=== PATIENT | female | born 1955 | race Caucasian/White ===

== ENCOUNTER 2024-05-03 10:19 | Day surgery (SDC) | payer MEDICARE, BC ==
[2024-04-20 15:26] LABS: BASOPHILS % (AUTO) 0.4 % (0-1); EOSINOPHILS # (AUTO) 0.1 X10'3 (0-0.9); EOSINOPHILS % (AUTO) 1.4 % (0-6); LYMPHOCYTES % (AUTO) 27.1 % (21-51); MEAN CORPUSCULAR HEMOGLOBIN 29.8 PG (27.0-31.0); MEAN CORPUSCULAR VOLUME 90.3 FL (78-98); MEAN PLATELET VOLUME 7.8 FL (7.4-10.4); MONOCYTES # (AUTO) 0.4 X10'3 (0-0.9); MONOCYTES % (AUTO) 5.3 % (2-12); NEUTROPHILS # (AUTO) 4.8 X10'3 (1.8-7.7); NEUTROPHILS % (AUTO) 65.8 % (42-75); PRE OP HEMATOCRIT 45.2 % (35.0-45.0); PRE OP HEMOGLOBIN 14.9 g/dL (12.0-16.0); PRE OP PLATELET COUNT 293 X10'3 (140-440); PRE OP WHITE BLOOD COUNT 7.4 10'3 (4.8-10.8); RED CELL DISTRIBUTION WIDTH 13.4 % (11.5-14.5)
[2024-04-20 15:37] LABS: ALBUMIN 4.3 G/DL (3.4-5.0); ALBUMIN/GLOBULIN RATIO 1.1 (1.1-1.5); ALKALINE PHOSPHATASE 56 IU/L (46-116); BLOOD UREA NITROGEN 16 MG/DL (7-18); BUN/CREATININE RATIO 21.3 (10.0-20.0); CALCIUM 9.4 MG/DL (8.5-10.1); CHLORIDE 103 MMOL/L (99-107); CREATININE 0.75 MG/DL (0.40-0.90); PRE OP ALT 25 U/L (30-65); PRE OP ANION GAP 8 (8-16); PRE OP AST 13 U/L (10-37); PRE OP BILIRUB, TOTAL 0.8 MG/DL (0.0-1.0); PRE OP GLUCOSE 93 MG/DL (70-104); PRE OP POTASSIUM 4.3 MMOL/L (3.4-5.1); PRE OP SODIUM 139 MMOL/L (135-145); TOTAL CARBON DIOXIDE 28.1 MMOL/L (24-32); TOTAL PROTEIN 8.3 G/DL (6.4-8.2); eGFR 77 ML/MIN
[2024-04-25] MEDS: ceFAZolin 2gm in dextrose, iso 50 ML IV ONE (05:30)
[2024-05-03] VITALS (12 sets, daily range): BP systolic 132–165; BP diastolic 70–92; PULSE 60–87; RESP 13–20; TEMP 98.9; O2SAT 97–100
[~2024-05-03] VITALS: Ht 162.6 cm; Wt 58.2 kg
[2024-05-03] MEDS: ceFAZolin 2gm in dextrose, iso 50 ML IV ONE (05:30)
[~2024-05-03 10:19] MED LIST: BUPIVAcaine 2.5mg/ml inj 50ml vial (contains preservative) ONE; CALCIUM PO; CHOL200080 PO; LEVO100T PO; LIDOcaine 1% (10mg/ml)w/preservative inj. 20ml MDV ONE; famotidine 20mg tablet PO ONE; methylene blue (5mg/ml) 50mg/10ml ampul IV ONE; ringers solution, lacted 1,000 ML IV SCH
[2024-05-03] MEDS: ringers solution, lacted 1,000 ML IV SCH (11:03)
[2024-05-03] MEDS: famotidine 20mg tablet PO ONE (11:03)
[2024-05-03] MEDS ORDERED: labetalol 20mg/4ml (5mg/ml) syringe IV PRN (13:20)
[2024-05-03] MEDS ORDERED: morphine 4 MG/ML inj SYRINge IV PRN (13:20)
[2024-05-03] MEDS ORDERED: HYDROmorphone/PF 0.2 MG/ML SYRINGE IV PRN ×2 (13:20)
[2024-05-03] MEDS ORDERED: morphine 2 MG/ML inj. syringe IV PRN (13:20)
[2024-05-03] MEDS ORDERED: ondansetron/PF 4mg/2ml inj IV PRN (13:20)
[2024-05-03] MEDS ORDERED: hydrALAZINE 20mg/ml inj. IV PRN (13:20)
[2024-05-03] MEDS ORDERED: ringers solution, lacted 1,000 ML IV SCH (13:20)
[2024-05-03] MEDS ORDERED: proCHLORperazine 10 MG/2 ml inj IV PRN (13:20)
[2024-05-03] MEDS ORDERED: sevoflurane 250ml liquid IH ONE (13:21)
[2024-05-03] MEDS ORDERED: midazolam 1 mg/ML 2ml injection ONE (13:25)
[2024-05-03] MEDS ORDERED: fentaNYL/PF 50MCG/1 ML 2ML syringe ONE (13:25)
[2024-05-03] MEDS: LIDOcaine 1% 30ml preserv. free vial SQ ONE (13:54)
[2024-05-03] MEDS: methylene blue (5mg/ml) 50mg/10ml ampul IV ONE (13:57)
[2024-05-03] MEDS ORDERED: dexamethasone sod phosphate 4mg/ml inj. ONE (14:21)
[2024-05-03] MEDS ORDERED: propofol inj 20 ML IV ONE ×2 (14:21)
[2024-05-03] MEDS ORDERED: LIDOcaine 1%/PF 5ML 10 MG/ML VIAL ONE (14:21)
[2024-05-03] MEDS ORDERED: ondansetron/PF 4mg/2ml inj ONE (14:21)
[2024-05-03] MEDS: acetaminophen 1,000mg/100ml IV 100 ML IV PRN (15:46)
== END 2024-05-03 17:20 | disposition home or self-care (01) ==
LOC: PAS 10:19
PROVIDERS: ATTEND Surgery
DX: C50.412 Malignant neoplasm of upper-outer quadrant of left female breast (principal); R59.0 Localized enlarged lymph nodes; E03.9 Hypothyroidism, unspecified; Z79.899 Other long term (current) drug therapy; Z98.890 Other specified postprocedural states; Z98.891 History of uterine scar from previous surgery; Z80.3 Family history of malignant neoplasm of breast
CPT/HCPCS: 19301; 36415; 38525; 38900; 76098; 80053; 82948; 85025; 93005; A4215; A4618; A6258; A6402; A7000; J0131; J0690; J1100; J2003; J2250; J2405; J2704; J3010; J3490; J7030; J7120; Q9968; Z7506; Z7508; Z7512; Z7610; 88307; 88342; A6449

== ENCOUNTER 2024-05-25 05:32 | Day surgery (SDC) | payer MEDICARE, BC ==
[2024-05-18 15:40] LABS: BASOPHILS # (AUTO) 0.1 X10'3 (0-0.2); BASOPHILS % (AUTO) 0.9 % (0-1); EOSINOPHILS # (AUTO) 0.1 X10'3 (0-0.9); EOSINOPHILS % (AUTO) 2.2 % (0-6); LYMPHOCYTES # (AUTO) 1.9 X10'3 (1.1-4.8); LYMPHOCYTES % (AUTO) 30.3 % (21-51); MEAN CORPUSCULAR HEMOGLOBIN 29.8 PG (27.0-31.0); MEAN CORPUSCULAR HGB CONC 33.4 g/dL (33.0-36.5); MEAN CORPUSCULAR VOLUME 89.2 FL (78-98); MEAN PLATELET VOLUME 8.2 FL (7.4-10.4); MONOCYTES # (AUTO) 0.3 X10'3 (0-0.9); MONOCYTES % (AUTO) 5.2 % (2-12); NEUTROPHILS # (AUTO) 3.9 X10'3 (1.8-7.7); NEUTROPHILS % (AUTO) 61.4 % (42-75); PRE OP HEMATOCRIT 43.3 % (35.0-45.0); PRE OP HEMOGLOBIN 14.5 g/dL (12.0-16.0); PRE OP PLATELET COUNT 244 X10'3 (140-440); PRE OP WHITE BLOOD COUNT 6.4 10'3 (4.8-10.8); RED BLOOD COUNT 4.85 X10'6 (4.20-5.60); RED CELL DISTRIBUTION WIDTH 13.2 % (11.5-14.5)
[2024-05-18 15:55] LABS: ALBUMIN 3.7 G/DL (3.4-5.0); ALBUMIN/GLOBULIN RATIO 1.1 (1.1-1.5); ALKALINE PHOSPHATASE 68 IU/L (46-116); BLOOD UREA NITROGEN 12 MG/DL (7-18); BUN/CREATININE RATIO 19.7 (10.0-20.0); CALCIUM 9.5 MG/DL (8.5-10.1); CHLORIDE 103 MMOL/L (99-107); CREATININE 0.61 MG/DL (0.40-0.90); PRE OP ALT 20 U/L (30-65); PRE OP ANION GAP 8 (8-16); PRE OP AST 16 U/L (10-37); PRE OP BILIRUB, TOTAL 0.7 MG/DL (0.0-1.0); PRE OP GLUCOSE 97 MG/DL (70-104); PRE OP POTASSIUM 3.6 MMOL/L (3.4-5.1); PRE OP SODIUM 140 MMOL/L (135-145); TOTAL CARBON DIOXIDE 28.6 MMOL/L (24-32); TOTAL PROTEIN 7.2 G/DL (6.4-8.2); eGFR > 90 ML/MIN
[2024-05-25] VITALS (7 sets, daily range): BP systolic 110–134; BP diastolic 68–85; PULSE 58–76; RESP 10–20; TEMP 98; O2SAT 97–99
[~2024-05-25] VITALS: Ht 162.6 cm; Wt 58.2 kg
[~2024-05-25 05:32] MED LIST changes: -BUPIVAcaine 2.5mg/ml inj 50ml vial (contains preservative) ONE; -LIDOcaine 1% (10mg/ml)w/preservative inj. 20ml MDV ONE; -famotidine 20mg tablet PO ONE; -methylene blue (5mg/ml) 50mg/10ml ampul IV ONE; -ringers solution, lacted 1,000 ML IV SCH
[2024-05-25] MEDS: ceFAZolin 2gm in dextrose, iso 50 ML IV ONE (05:43)
[2024-05-25] MEDS: famotidine 20mg tablet PO ONE (06:02)
[2024-05-25] MEDS: ringers solution, lacted 1,000 ML IV SCH (06:03)
[2024-05-25] MEDS ORDERED: LIDOcaine 1% 30ml preserv. free vial ONE (06:52)
[2024-05-25] MEDS ORDERED: BUPIVAcaine 2.5mg/ml inj 50ml vial (contains preservative) ONE (06:52)
[2024-05-25] MEDS ORDERED: methylene blue (5mg/ml) 50mg/10ml ampul IV ONE (06:52)
[2024-05-25] MEDS ORDERED: BUPIVACAINE liposomal/PF 13.3 MG/ML 10mL vial IM ONE (06:53)
[2024-05-25] MEDS ORDERED: labetalol 20mg/4ml (5mg/ml) syringe IV PRN (07:15)
[2024-05-25] MEDS ORDERED: morphine 4 MG/ML inj SYRINge IV PRN (07:15)
[2024-05-25] MEDS ORDERED: hydrALAZINE 20mg/ml inj. IV PRN (07:15)
[2024-05-25] MEDS ORDERED: morphine 2 MG/ML inj. syringe IV PRN (07:15)
[2024-05-25] MEDS ORDERED: ondansetron/PF 4mg/2ml inj IV PRN (07:15)
[2024-05-25] MEDS ORDERED: ringers solution, lacted 1,000 ML IV SCH (07:15)
[2024-05-25] MEDS ORDERED: fentaNYL/PF 50MCG/1 ML 2ML syringe IV PRN ×2 (07:15)
[2024-05-25] MEDS ORDERED: dexamethasone sod phosphate 4mg/ml inj. ONE (07:27)
[2024-05-25] MEDS ORDERED: propofol inj 20 ML IV ONE (07:27)
[2024-05-25] MEDS ORDERED: fentaNYL/PF 50MCG/1 ML 2ML syringe ONE ×2 (07:27→08:04)
[2024-05-25] MEDS ORDERED: midazolam 1 mg/ML 2ml injection ONE (07:27)
[2024-05-25] MEDS ORDERED: LIDOcaine 2% (20mg/ml) 5ml vial ONE (07:27)
[2024-05-25] MEDS ORDERED: ondansetron/PF 4mg/2ml inj ONE (07:27)
[2024-05-25] MEDS ORDERED: desflurane 240ml liquid inh. IH ONE (07:28)
[2024-05-25] MEDS ORDERED: acetaminophen 1,000mg/100ml IV 100 ML IV ONE (07:56)
[2024-05-25] MEDS: LIDOcaine 1% 30ml preserv. free vial IJ ONE (08:11)
[2024-05-25] MEDS: BUPIVAcaine/PF 2.5 mg/ml (0.25%) 30ml vial IJ ONE (09:00)
== END 2024-05-25 09:45 | disposition home or self-care (01) ==
LOC: PAS 05:32
PROVIDERS: ATTEND Surgery
DX: C50.912 Malignant neoplasm of unspecified site of left female breast (principal); Z98.890 Other specified postprocedural states; Z79.899 Other long term (current) drug therapy; E03.9 Hypothyroidism, unspecified; Z80.1 Family history of malignant neoplasm of trachea, bronchus and lung
CPT/HCPCS: 19301; 36415; 80053; 82948; 85025; A4215; A4618; A6212; A6258; A6449; A7000; J0131; J0666; J0690; J1100; J2003; J2250; J2405; J2704; J3010; J3490; J7030; J7120; Q9968; Z7506; Z7508; Z7512; Z7610